=== PATIENT | female | born 2000 | race African-American/Black ===

== ENCOUNTER 2023-01-10 11:38 | Emergency (ER) | payer OTHER ==
[2023-01-10 11:47] VITALS: BP 108/68; RESP 16; TEMP 98.1; BMI 24.0
[2023-01-10] MEDS ORDERED: ACETAMINOPHEN 325 MG TABLET (FP) PO ONE (11:59)
[2023-01-10] MEDS ORDERED: ACETAMINOPHEN 325 MG TABLET (FP) ONE (12:00)
[2023-01-10 12:30] VITALS: PULSE 78
== END 2023-01-10 12:25 | disposition home or self-care (01) ==
LOC: FER 11:38
DX: T59.891A Toxic effect of other specified gases, fumes and vapors, accidental (unintentional), initial encounter (principal); J68.9 Unspecified respiratory condition due to chemicals, gases, fumes and vapors; R51.9 Headache, unspecified; R06.02 Shortness of breath; H57.89 Other specified disorders of eye and adnexa; Y99.0 Civilian activity done for income or pay
CPT/HCPCS: 99282-25